=== PATIENT | female | born 1960 | race Caucasian/White ===

== ENCOUNTER → 2024-09-02 | Outpatient (CLI) | payer OTHER ==
--- NOTE | 2024-09-02 15:43 | MR ---
EXAMINATION TYPE: MR brain wo/w con DATE OF EXAM: 09/02/2024 3:23 PM COMPARISON: None. 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 TECHNIQUE: Multi planar, multi sequence imaging was performed through the brain including: T1, T2, In version recovery, susceptibility weighted imaging and gradient echo imaging and Diffusion weighted im aging. The patient was then given intravenous contrast and multi planar, T1 fat-saturation images wer e obtained. IV Contrast: 9 mL Gadobutrol FINDINGS: Foci of restricted diffusion within the right occipital lobe which would correspond with le ft-sided homonymous bilateral filling defects. There is some intrinsic high T1 signal within the ricardo ex suggesting cortical laminar necrosis. No associated blooming artifact on susceptibility weighted i maging. There is associated high FLAIR signal in this region. The brink-white junctions, ventricular system, basal cisterns appear unremarkable. Intracranial arter ial flow voids are maintained. Midline structures show no abnormality. Scattered foci of high T2 sign al intensity are seen within the periventricular white matter. The susceptibility weighted images do not reveal any evidence for micro-hemorrhage. After administration of gadolinium, no abnormal enhance ment is seen. The bone marrow signal is within normal limits. Paranasal sinuses and mastoid air cells: No significant paranasal sinus disease. Visualized orbits: Orbital contents are intact. IMPRESSION: 1. 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 2. Nonspecific white matter changes, likely related to small vessel ischemic disease. [facility], , 09/02/2024 3:40 PM
== END | disposition home or self-care (01) ==
LOC: RADMRIMAIN 14:13
PROVIDERS: ATTEND Ophthalmology
DX: R90.82 White matter disease, unspecified (principal); H53.462 Homonymous bilateral field defects, left side
CPT/HCPCS: 70553; A9585

== ENCOUNTER 2025-03-18 15:14 | Emergency (ER) | payer OTHER ==
[2025-03-18 15:22] VITALS: TEMP 97.8
--- NOTE | 2025-03-18 15:53 | ED ---
General Adult HPI - General Chief complaint: Extremity Injury, Lower Stated complaint: X-ray Time Seen by Provider: 03/18/25 15:25 Source: patient, RN notes reviewed, old records reviewed Mode of arrival: ambulatory Limitations: no limitations - History of Present Illness Initial comments: This is a 64-year-old male who presents to the emergency department stating that about 2 weeks ago he injured his mid left hamstring and it is getting slowly better but it still hurts and he went to peds clinic and they told him to come get evaluated here. Patient has no hip pain patient has no knee pain patient is able to ambulate normally. Patient states only once in a while does the hamstring hurt. - Related Data Previous Rx's Medication Instructions Recorded Ketorolac [Toradol] 10 mg PO Q8HR #15 tab 03/18/25 Allergies Allergy/AdvReac Type Severity Reaction Status Date / Time tree nut Allergy Anaphylaxis Verified 03/18/25 15:23 Review of Systems ROS Statement: Those systems with pertinent positive or pertinent negative responses have been documented in the HPI. ROS Other: All systems not noted in ROS Statement are negative. Past Medical History Past Medical History: Diabetes Mellitus, Hypertension, Thyroid Disorder Past Surgical History: No Surgical Hx Reported Smoking Status: Never smoker Past Alcohol Use History: None Reported Past Drug Use History: None Reported General Exam - General Exam Comments Initial Comments: GENERAL Patient is well-developed and well-nourished. Patient is in mild distress. EYES Patient's pupils are equal and round. Extraocular motion is intact SKIN Unremarkable NEURO The patient is alert and oriented A&Ox3 PYSCH Patient has normal interpersonal interactions. MUSCULOSKELETAL Patient has no knee pain no hip pain. Patient has tenderness in the mid left hamstring there is no ecchymosis swelling or redness. Limitations: no limitations Course Vital Signs 03/18/25 15:18 Temperature 97.8 F Pulse Rate 72 Respiratory 18 Rate Blood Pressure 162/93 O2 Sat by Pulse 97 Oximetry Medical Decision Making - Medical Decision Making Was pt. sent in by a medical professional or institution (, PA, [facility], urgent care, hospital, or correction...) When possible be specific @ -No Did you speak to anyone other than the patient for history (EMS, parent, family, police, friend...)? What history was obtained from this source @ -No Did you review nursing and triage notes (agree or disagree)? Why? @ -I reviewed and agree with nursing and triage notes Were old charts reviewed (outside hosp., previous admission, EMS record, old EKG, old radiological studies, urgent care reports/EKG's, correction records)? Report findings @ -No old charts were reviewed Differential Diagnosis? @ -Differential Musculoskeletal Muscular strain, contusion, ligament sprain, fracture, arthritis, septic arthri tis, bursitis, cellulitis, muscle spasm, nerve compression, DVT, arterial occlusion, herpes zoster, electrolyte abnormality, tumor.... This is not meant to be in all inclusive list EKG interpreted by me (3pts min.). @ -As above X-rays interpreted by me (1pt min.). @ -None done CT interpreted by me (1pt min.). @ -None done U/S interpreted by me (1pt. min.). @ -None done What testing was considered but not performed or refused? (CT, X-rays, U/S, labs)? Why? @ -None What meds were considered but not given or refused? Why? @ -None Did you discuss the management of the patient with other professionals (professionals i.e. , PA, [facility], lab, RT, psych nurse, social services specialist, executive chef assistant, teacher, international first officer, case resource manager)? Give summary @ -No Was smoking cessation discussed for >3mins.? @ -No Was critical care preformed (if so, how long)? @ -No Were there social determinants of health that impacted care today? How? (Homelessness, low income, unemployed, alcoholism, drug addiction, transportation, low edu. Level, literacy, decrease access to med. care, [facility], rehab)? @ -No Was there de-escalation of care discussed even if they declined (Discuss DNR or withdrawal of care, Hospice)? DNR status @ -No What co-morbidities impacted this encounter? (DM, HTN, Smoking, COPD, CAD, Cancer, CVA, ARF, Chemo, Hep., AIDS, mental health diagnosis, sleep apnea, morbid obesity)? @ -None Was patient admitted / discharged? Hospital course, mention meds given and route, prescriptions, significant lab abnormalities, going to OR and other pertinent info. @ -Patient has no bony tenderness. Patient has mid left hamstring tenderness. Undiagnosed new problem with uncertain prognosis? @ -No Drug Therapy requiring intensive monitoring for toxicity (Heparin, Nitro, Insulin, Cardizem)? @ -No Were any procedures done? @ -No Diagnosis/symptom? @ -Hamstring strain Acute, or Chronic, or Acute on Chronic? @ -Default Uncomplicated (without systemic symptoms) or Complicated (systemic symptoms)? @ -Acute uncomplicated Side effects of treatment? @ -No Exacerbation, Progression, or Severe Exacerbation? @ -No Poses a threat to life or bodily function? How? (Chest pain, [place], [place], pneumonia, PE, COPD, DKA, ARF, appy, cholecystitis, CVA, Diverticulitis, Homicidal, Suicidal, threat to staff... and all critical care pts) @ -No Disposition Clinical Impression: Hamstring strain Disposition: HOME SELF-CARE Condition: Good Instructions (If sedation given, give patient instructions): Hamstring Injury ( ED) Prescriptions: Ketorolac [Toradol] 10 mg PO Q8HR #15 tab Is patient prescribed a controlled substance at d/c from ED?: No Referrals: Hilario Khan MD [Primary Care Provider] - 1-2 days Time of Disposition: 15:53
[2025-03-18 16:07] VITALS: BP 142/87; PULSE 64; RESP 17
== END 2025-03-18 16:07 | disposition home or self-care (01) ==
LOC: EC 15:14
DX: S76.312A Strain of muscle, fascia and tendon of the posterior muscle group at thigh level, left thigh, initial encounter (principal); X58.XXXA Exposure to other specified factors, initial encounter
CPT/HCPCS: 99283